=== PATIENT | female | born 1995 | race Caucasian/White ===

== ENCOUNTER 2019-09-05 16:45 | Outpatient (REF) | payer SELFPAY | END 2019-09-05 17:05 | LOC: NCHCO 16:45 | PROVIDERS: PCP Pediatrics; Visit Provider Registered Nurse | DX: R82.90 Unspecified abnormal findings in urine (principal) | CPT/HCPCS: 87086 ==

== ENCOUNTER 2023-07-28 14:38 | Outpatient (REF) | payer SELFPAY ==
--- NOTE | 2023-07-28 13:45 | PAPFT_PTH ---
PATIENT: Alma Quesada LOC: [facility] U#:[id number] AGE/SX: 28/F ROOM: RE07/28/[address]: Misty Rojas CNM : 1995 BED: DIS: 07/28/2023 SPEC #: [id number] RECD: 07/28/23 18:31 STATUS: COLLEEN REQ #: [id number] JOSE: 07/28/23 13:[address]: Misty Rojas DEPT: [facility] Cytology RECD BY: Lola Alejandro ENTERED: 07/28/23 18:31 SP TYPE: PAPFT OTHR DR: Alison Local Tissues: 1 - CX/ENDOCX FOR PAP SMEARS Procedures: PAP THIN PREP/UVM Screening Comments: [id number] (CHLAMYDIA/GC)
[2023-07-28 18:28] LABS: *AMPHETAMINES SCREEN URINE Negative (Negative); *BARBITURATES SCREEN URINE Negative (Negative); *BENZODIAZEPINES SCREEN URINE Negative (Negative); Cannabinoids THC Negative (Negative); Cocaine Screen,Urine Negative (Negative); METHADONE URINE SCREEN Negative (Negative); OPIATES URINE SCREEN Negative (Negative)
[2023-07-28 18:30] LABS: Tricyclic Antidepressants Negative (Negative)
[2023-07-29 12:57] LABS: Chlamydia Result Negative (Negative); GC Result Negative (Negative)
[2023-08-05 11:03] LABS: Buprenorphine Negative ng/mL (Cutoff: 5.0); Norbuprenorphine Negative ng/mL (Cutoff: 2.5)
== END 2023-07-28 14:39 | disposition home or self-care (01) ==
LOC: LBN 14:38
PROVIDERS: Visit Provider Advanced Practice Midwife
DX: Z34.91 Encounter for supervision of normal pregnancy, unspecified, first trimester (principal); Z3A.15 15 weeks gestation of pregnancy; Z11.3 Encounter for screening for infections with a predominantly sexual mode of transmission; Z12.4 Encounter for screening for malignant neoplasm of cervix
CPT/HCPCS: 80307; 80348; 87491; 87591; 88142; 87086

== ENCOUNTER → 2023-09-02 02:35 | Outpatient (CLI) | payer MEDICAID, SELFPAY ==
--- NOTE | 2023-09-02 06:30 | DI.US_ITS ---
Exam(s) US OB 2-3 TRIMESTER EXAM: US OB 2-3 TRIMESTER CLINICAL HISTORY: anatomy,z34.91. TECHNIQUE: Transabdominal obstetrical ultrasound performed. COMPARISON: US POCUS EXAM from 07/22/2023 FINDINGS: Number of fetuses: One. position: Vertex. Placental grade: 1 Placental location: Anterior no evidence of previa. BIOMETRIC DATA: BPD: 46mm = 20+ 0 weeks HC: 178mm = 20+ 2 weeks AC: 162mm = 21+2 weeks FL: 33mm = 20+ 3 weeks Cisterna Magna: 6 mm Cerebellum: 1.9 cm EFW: 375 grms 72% Composite Age: 20+ 4 weeks EDC by US: 16 January 2024 Heart Rate: 141BPM Amniotic fluid : Amount of fluid is within normal limits. MALIKA 10.3 ANATOMICAL SURVEY: Four-chambered heart: Unremarkable. LVOT: Unremarkable. RVOT: Unremarkable. Left-sided stomach: Unremarkable. urinary bladder: Unremarkable. Bilateral kidneys: Unremarkable. Three-vessel cord: Unremarkable. Cord insertion: Unremarkable. Posterior fossa:Unremarkable. ventricles: Unremarkable. nose: Unremarkable. lips: Unremarkable. palate: Unremarkable. spine: Unremarkable. Two arms and two legs: Unremarkable. IMPRESSION: 1. Single live intrauterine gestation with composite age of 20 weeks 4 days.. 2. Normal anatomic survey. DATA REPOSITORY:
== END ==
PROVIDERS: Visit Provider Advanced Practice Midwife
DX: Z34.91 Encounter for supervision of normal pregnancy, unspecified, first trimester (principal)
CPT/HCPCS: 76805

== ENCOUNTER 2023-10-28 10:07 | Outpatient (CLI) | payer MEDICAID, SELFPAY ==
[2023-10-28 10:28] LABS: HCT 32.3 % (36.0-46.0); HGB 11.1 g/dL (11.2-15.7); MCH 32.1 pg (27.0-33.0); MCHC 34.4 % (32.0-36.0); MCV 93 fL (80-95); MPV 9.5 fL (8.0-11.0); Platelet Count 228 10^3/uL (130-400); RBC 3.46 10^6/uL (3.93-5.22); RDW 12.1 % (11.7-14.6); RDW-SD 41.2 fL; WBC 8.41 10^3/uL (4.4-10.8)
[2023-10-28 10:41] LABS: Glucose,1 Hr (Glucola) 88 mg/dL (80-140)
[2023-10-29 09:42] LABS: Hepatitis B Surface Ag Negative (Negative)
[2023-10-29 09:52] LABS: Hepatitis C Ab w Rflx HCV PCR Negative (Negative)
[2023-10-29 10:13] LABS: Varicella IgG Antibody Positive (See Note)
[2023-10-29 10:22] LABS: HIV-1/2 Ag & Ab Screen Negative (Negative)
[2023-10-29 10:25] LABS: Rubella IgG Ab (UVM) Positive (See Note)
[2023-10-30 21:28] LABS: Syphilis IgG w/Reflex Nonreactive (Nonreactive)
== END 2023-10-28 10:08 | disposition home or self-care (01) ==
LOC: LBO 10:09
PROVIDERS: Visit Provider Advanced Practice Midwife
DX: Z34.92 Encounter for supervision of normal pregnancy, unspecified, second trimester (principal)
CPT/HCPCS: 36415; 82950; 85027; 86787; 86803; 86850; 86900; 86901; 87340; 87389; 86762; 86780

== ENCOUNTER 2023-12-21 14:41 | Outpatient (REF) | payer MEDICAID, SELFPAY ==
[2023-12-21 20:39] LABS: *AMPHETAMINES SCREEN URINE Negative (Negative); *BARBITURATES SCREEN URINE Negative (Negative); *BENZODIAZEPINES SCREEN URINE Negative (Negative); Cannabinoids THC Negative (Negative); Cocaine Screen,Urine Negative (Negative); METHADONE URINE SCREEN Negative (Negative); OPIATES URINE SCREEN Negative (Negative)
[2023-12-21 20:41] LABS: Tricyclic Antidepressants Negative (Negative)
[2023-12-29 09:42] LABS: Buprenorphine Negative ng/mL (Cutoff: 5.0)
== END 2023-12-21 14:42 | disposition home or self-care (01) ==
LOC: LBN 14:41
PROVIDERS: PCP Advanced Practice Midwife; Visit Provider Advanced Practice Midwife
DX: Z34.93 Encounter for supervision of normal pregnancy, unspecified, third trimester (principal)
CPT/HCPCS: 80307; 80348; 87081

== ENCOUNTER 2023-12-21 14:52 | Outpatient (CLI) | payer MEDICAID, SELFPAY ==
[2023-12-21 14:55] VITALS: BP 115/68; PULSE 88; RESP 16; TEMP 36.6; O2SAT 98
[2023-12-21 15:07] VITALS: BP 115/68
--- NOTE | 2024-01-14 15:31 | W.OBNST ---
Date of service: 01/14/24 Time of Service: 15:31 NST Evaluation Reason for NST Reasons for Nonstress Test: OTHER, SEE COMMENT Reason for NST Other: low heart rate Gestational Age Gestational Age in Weeks and Days: 36 Weeks and 0Days Test and Monitor Explained Test/Monitor Explained: Test Explained, Monitor Explained and Patient Verbalized Understanding Vital Signs Blood Pressure: 115/68 NST Information Date on Monitor: 12/21/23 Time on Monitor: 15:06 Date off Monitor: 12/21/23 Time off Monitor: 16:09 Total Time on Monitor: 63 NST Interventions: PO Hydration NST Evaluation Patient States Movement: Present FHR Baseline: 125 Variability: Moderate 6-25 bpm Accelerations: 10x10 Decelerations: None NST Results: Questionable Note Ultrasound Done: MALIKA (evaluated well being.) Indication: Other (baseline FHR seemed low in office. BC evaluation of MALIKA requested by CNM. ) Largest Vertical Pocket: 6.8 Total MALIKA: 11.6 Other Pertinent Findings: Heart Rate Coding for MALIKA w/NST: Completed Exam. NST Note Note: BPP 10/10. Findings conveyed to pt and CNM. NST Reviewed and Verified by: Preeti Jerome
[2024-01-14 15:33] VITALS: BP 115/68
== END 2023-12-21 16:30 ==
LOC: BCD 14:53 → OBS 15:05
PROVIDERS: PCP Advanced Practice Midwife; Visit Provider Advanced Practice Midwife
DX: O36.8391 Maternal care for abnormalities of the fetal heart rate or rhythm, unspecified trimester, fetus 1 (principal); Z3A.36 36 weeks gestation of pregnancy
CPT/HCPCS: 59025

== ENCOUNTER 2023-12-28 04:01 | Outpatient (CLI) | payer MEDICAID, SELFPAY ==
[2023-12-28 14:09] LABS: HCT 31.7 % (36.0-46.0); HGB 10.8 g/dL (11.2-15.7); MCH 30.9 pg (27.0-33.0); MCHC 34.1 % (32.0-36.0); MCV 91 fL (80-95); MPV 10.1 fL (8.0-11.0); Platelet Count 177 10^3/uL (130-400); RBC 3.49 10^6/uL (3.93-5.22); RDW 13.8 % (11.7-14.6); RDW-SD 45.3 fL; WBC 8.15 10^3/uL (4.4-10.8)
== END 2023-12-28 04:02 | disposition home or self-care (01) ==
LOC: LBO 04:02
PROVIDERS: PCP Advanced Practice Midwife; Visit Provider Advanced Practice Midwife
DX: Z34.93 Encounter for supervision of normal pregnancy, unspecified, third trimester (principal); Z3A.37 37 weeks gestation of pregnancy
CPT/HCPCS: 36415; 85027

== ENCOUNTER 2024-01-19 11:33 | Outpatient (CLI) | payer MEDICAID, SELFPAY ==
--- NOTE | 2024-01-19 12:34 | W.OBNST ---
Date of service: 01/19/24 Time of Service: 12:34 NST Evaluation Reason for NST Reasons for Nonstress Test: OTHER, SEE COMMENT Reason for NST Other: arrythmia Gestational Age Gestational Age in Weeks and Days: 40 Weeks and 1Days Test and Monitor Explained Test/Monitor Explained: Test Explained, Monitor Explained and Patient Verbalized Understanding NST Information Date on Monitor: 01/19/24 Time on Monitor: 11:35 Date off Monitor: 01/19/24 Time off Monitor: 12:25 Total Time on Monitor: 50 NST Interventions: PO Hydration NST Evaluation Patient States Movement: Present FHR Baseline: 120 Variability: Moderate 6-25 bpm Accelerations: 15x15 Decelerations: None NST Results: Reactive Note Ultrasound Done: N/A. NST Note Note: NST is reactive and reassuring. Will return on Thursday01/25/24 for NST and MALIKA or as needed. NST Reviewed and Verified by: Misty Rojas
--- NOTE | 2024-01-19 16:56 | W.OBNST ---
Date of service: 01/19/24 Time of Service: 12:30 NST Evaluation Reason for NST Reasons for Nonstress Test: OTHER, SEE COMMENT Reason for NST Other: arrythmia Gestational Age Gestational Age in Weeks and Days: 40 Weeks and 1Days Test and Monitor Explained Test/Monitor Explained: Test Explained, Monitor Explained and Patient Verbalized Understanding Vital Signs Blood Pressure: 110/76 NST Information Date on Monitor: 01/19/24 Time on Monitor: 11:35 Date off Monitor: 01/19/24 Time off Monitor: 12:25 Total Time on Monitor: 50 NST Interventions: PO Hydration NST Evaluation Patient States Movement: Present FHR Baseline: 120 Variability: Moderate 6-25 bpm Accelerations: 15x15 Decelerations: None NST Results: Reactive Note Ultrasound Done: N/A. NST Note Note: NST is reactive and reassuring. No audible FHR arrythmia noted but was noted in office. I reviewed with patient that an irregular HR for fetus usually resolves after delivery. She will return in 1 week for NST and MALIKA and to consider induction of labor or prn. MYRON NST Reviewed and Verified by: Misty Rojas
[2024-01-19 16:59] VITALS: BP 110/76
== END 2024-01-19 12:30 | disposition home or self-care (01) ==
LOC: BCD 11:35 → OBS 11:42
PROVIDERS: PCP Advanced Practice Midwife; Visit Provider Advanced Practice Midwife
DX: O36.8331 Maternal care for abnormalities of the fetal heart rate or rhythm, third trimester, fetus 1 (principal); Z3A.40 40 weeks gestation of pregnancy
CPT/HCPCS: 59025

== ENCOUNTER 2024-01-25 00:35 | Inpatient (IN) | payer MEDICAID, SELFPAY ==
[2024-01-25] VITALS (25 sets, daily range): BP systolic 103–134; BP diastolic 61–79; PULSE 51–97; RESP 16–18; TEMP 36.4–36.6; O2SAT 97
--- NOTE | 2024-01-25 01:45 | W.PM.OBHPL1 ---
Date of service: 01/25/24 Time of Service: 01:45 Assessment and Plan Assessment and plan (1) Spontaneous onset of labor: Status: Acute Assessment and plan: Admit to the center. BP 125-134/78-79. Admission labs wth CMP and uric acid. Comfort measures. Tylenol PO for headache. Anticipate . OB-HPI Labor/Delivery History of Present Illness Reason for Visit: Labour Chief Complaint: Uterine Contractions. RAMONA Calculator Estimated Delivery Date Method Current WG Current Estimate 01/18/24 Ultrasound #1 41w 0d Other Estimates 02/03/24 LMP (Uncertain) 38w 5d Comments: Alma presents with her partner and mother in active labor. She has had a headache for 3 days and has not taken any medications for this today. She normaly takes tylenol PO. History of Present Expected Delivery Route/Plan - CNM FOB - Jaiden Hernandez (first child) BB yes to circ support team will be both grandmom's and FOB Plans unmedicated GBS negative Specific Issues/Plan 1. Previous CF neg, declines SMA & cfDNA, accepts Quad screen but did not do labs in time 2. All labs at 28 weeks 3. Heartburn - omeprazole BID 4. Anemia - Taking iron daily. POC hgb 12/21 - 10.5 4a. At 37 wks hgb/hct = 10.8/31.7 PFSH All Active Problems (Updated 01/25/24 @ 01:49 by Misty Maciel CNM) Spontaneous onset of labor (Acute) (Acute) Delivery normal (Acute) Medical History (Updated 01/25/24 @ 01:49 by Misty Maciel CNM) Urinary tract infection (09/29/13) Family history of congenital anomaly (09/29/13) Postcoital and contact bleeding (04/19/18) Nexplanon insertion (04/09/16) LOT #[id number] Family history of cervical cancer (04/19/18) Personal history of urinary tract infection Posttraumatic stress disorder Surgical History History of mandibular surgery H/O right knee surgery Family History Mother Carcinoma in situ of uterine cervix Brother Family history of congenital anomaly Cerebellum Hypoplasia Other Cardiovascular disease Chronic hypotension Diabetes Social History Smoking/Tobacco Use Status: Never Smoking risk assessment performed?: Yes Alcohol Intake: former Drug use: Never Household members: significant other and children Housing: house Number of Children: 2 Communication Needs: None Pets and animals: Yes Pets and animals: cat(s) and dog(s) Sexually active: Yes What is your relationship status?: living with partner How often do you talk on the phone with friends or family?: once per week How often do you get together with friends or relatives?: once per week Panel score (0-1 are the most socially isolated patients): 1 What type of physical activity do you participate in: additional Details: horse back riding Karina/Yarsanism: Zoroastrianism Seatbelt use: always Helmet use: No Drive intox or ride w/intox driver education road instructor: No History History 4 Para 2 Hx # Term Pregnancies 2 Multiple births 0 Hx # Pregnancies 0 Ectopic pregnancies 0 AB induced 0 Hx Number of Living Children 2 AB spontaneous 1 Past Pregnancies Del. Date GA/Weeks # Preg Succ Route Wgt Sex Labor Lgth Anesthesia Location Prov Complic 06/30/09 6 No No 05/22/14 42 No Yes vaginal 9 lb 5.6 oz Male 24 Anea 02/24/16 41 No Yes vaginal 8 lb 10 oz Male 6 Anea Delivery Date: 06/30/09 Last Updated by: Misty Rojas CNM SAB no complications, reports as consensual Delivery Date: 05/22/14 Last Updated by: Misty Rojas CNM [facility] Anea delivered, Max Delivery Date: 02/24/16 Last Updated by: Misty Rojas CNM Anea for delivery, [facility] Allergies and Home Medications Allergies Allergy/AdvReac Type Severity Reaction Status Date / Time No Known Allergies Allergy Unverified 01/19/24 10:59 Home Medications Medication Instructions Recorded Confirmed Type vitamin#30 30 mg iron-10 cap PO 07/22/23 01/19/24 History mg iron-folic acid 1 mg-omg3 capsule ferrous sulfate 325 mg (65 mg 325 mg PO DAILY #30 tabs 10/28/23 01/19/24 Rx iron) tablet (Feosol) omeprazole magnesium 20 mg 40 mg (2 x 20 mg) PO BID #120 tabs 12/07/23 01/19/24 Rx tablet,delayed release hydrocortisone acetate 10 % (80 1 appful [place] BID #15 grams 12/29/23 01/19/24 Rx mg) rectal foam (Cortifoam) Exam Physical Exam Vital signs: Temp Pulse Resp BP 97.7 F 80 18 125/79 01/25/24 01:11 01/25/24 01:27 01/25/24 01:11 01/25/24 01:27 Constitutional Constitutional: no acute distress Detailed Labor and Delivery Exam Dilation: 4 Effacement (%): 80 station: -1 Cervix position: posterior Consistency: medium Bruno Score: Cervical Points Exam 0 1 2 3 Dilation Closed 1-2cm 3-4 cm 5-6cm Effacement 0-30% 40-50% 60-70% 80% Consistency Firm Medium Soft Station -3 -2 -1,0 +1,+2 Position Posterior Mid Anterior Amniotic Membrane Status: Intact Monitor Mode: External Contraction Frequency(min): every 2-3 Contraction Duration(sec): 50-60 Contraction Intensity: Moderate Fetus A Heart Rate Baseline: 135 Monitor Accelerations: 15 X 15 Monitor Decelerations: None Variability: Moderate (6-25 BPM) Presentation: Cephalic Categories: Category I Respiratory Exam Respiratory Exam: Normal Cardiovascular Exam Cardiovascular Exam: Normal Abdominal Exam Abdominal Exam: Normal Exam Exam: Normal Extremities Exam Extremities Exam: Normal Skin Exam Skin Exam: Normal Psychiatric Exam Psychiatric Exam: Normal Risk Assessment Risk for Shoulder Dystocia Historical/Initial OB: NEGATIVE FOR: Pelvic Abnormality, Pre- BMI>30, Previous Shoulder Dystocia or Previous Macrosomia 36 Weeks: NEGATIVE FOR: Current Gestational DM, EFW>4500gms or Maternal Weight Gain>40lbs 40 Weeks: POSTIVE FOR: Post Dates; NEGATIVE FOR: EFW> 4500 gms or Maternal Weight Gain >40lb Risk for Pre-Eclampsia Daily Dose ASA Indicated: No Yes, if one or more: NEGATIVE FOR: Hx Pre-E/Gest HTN, Chronic HTN, Multiple Gestation, Pre-gestational DM, Renal Disease, Systemic Lupus or APA Syndrome Yes, if 2 or more: NEGATIVE FOR: Nulliparity, Age>= 35 yrs, >10yr btwn pregnancies, BMI>30, ethinicty, Mother/Sister w/ Pre-E or Previous IUGR Risk for Post- Hemorrhage Initial: NEGATIVE FOR: Multiple Gestation, Previous PPH, Known Clotting Deficiency, Grand Multiparity or Anticoagulation 36 Weeks: NEGATIVE FOR: Anemia, hgb<10, Low platelets(thrombocytopenia), Gestational HTN or Pre-E, Polyhydraminios or EFW>4500gms 40 Weeks: NEGATIVE FOR: Anemia, hgb<10, Low platelets (thrombocytopenia), Gestation HTN or Pre-E, Polyhydraminios or EFW>4500gms At Risk?: No Risks Reviewed Risks Reviewed Upon Admission: Yes
[2024-01-25] MEDS: Acetaminophen 500 MG TAB 1000 MG PO (01:59)
[2024-01-25 02:02] LABS: HCT 32.1 % (36.0-46.0); HGB 11.1 g/dL (11.2-15.7); MCH 30.4 pg (27.0-33.0); MCHC 34.6 % (32.0-36.0); MCV 88 fL (80-95); Platelet Count 169 10^3/uL (130-400); RBC 3.65 10^6/uL (3.93-5.22); RDW-SD 41.9 fL; WBC 11.06 10^3/uL (4.4-10.8)
[2024-01-25 02:17] LABS: Uric Acid 7.2 mg/dL (2.6-6.0)
[2024-01-25 02:20] LABS: ALT 19 U/L (14-59); AST 21 U/L (15-37); Albumin 2.5 g/dL (3.4-5.0); Alkaline Phosphatase 210 U/L (46-116); Anion Gap 11.9 mmol/L (3-11); BUN 10 mg/dL (7-18); Bilirubin, Total 0.4 mg/dL (0.2-1.0); CO2 21.1 mmol/L (21.0-32.0); CREATININE 0.9 mg/dL (0.55-1.02); Calcium 8.6 mg/dL (8.5-10.1); Chloride 106 mmol/L (98-107); Estimated GFR 88.75 (mL/min/1.73m2); Glucose 92 mg/dL (74-106); Potassium 3.7 mmol/L (3.5-5.1); Sodium 139 mmol/L (136-145); Total Protein 6.7 g/dL (6.4-8.2)
[2024-01-25] MEDS: Oxytocin 10 UNITS/ML VIAL IM (06:02)
--- NOTE | 2024-01-25 06:42 | W.OBNST ---
Date of service: 01/25/24 Time of Service: 06:44 NST Evaluation Reason for NST Reasons for Nonstress Test: POSTDATES Gestational Age Gestational Age in Weeks and Days: 41 Weeks and 0Days Test and Monitor Explained Test/Monitor Explained: Test Explained and Patient Verbalized Understanding Vital Signs Blood Pressure: 134/78 Pulse: 68 Temperature: 207.9 F Urine Results Urine Protein: Negative Urine Ketones: Negative Urine Glucose: Negative Urine Blood: Negative NST Information Date on Monitor: 01/25/24 Time on Monitor: 00:48 Date off Monitor: 01/25/24 NST Interventions: PO Hydration NST Evaluation Patient States Movement: Present FHR Baseline: 130 Variability: Moderate 6-25 bpm Accelerations: 15x15 Decelerations: None NST Results: Reactive Note Ultrasound Done: N/A. NST Note Note: Alma is here for rule out labor. Strong regular contractions. 4 cms/80%/-1. Admitted in active labor NST Reviewed and Verified by: Misty Maciel
--- NOTE | 2024-01-25 06:58 | OBVDS_ITS ---
Date of service: 01/25/24 Time of Service: 06:58 OB Labor/ Delivery Information Baby A Delivery Delivery Method: Spontaneaous Presentation: Cephalic Vertex Position: Left Occipital Anterior Cord Description-Baby A: 3 Vessels Amniotic Fluid: Clear Estimated Blood Loss: 250 Delivery Outcome: Liveborn Transferred: Remains with Mother Note: FHTs 130s during first stage of labor. Alma used the tub and nitrous oxide for pain relief with excellent effect. She reported back pain and requested an epidural. She was examined and was found to be 9 cms. AROM performed for clear fluid and she began experiencing an urge to push. FHTs 130s in second stage. Second stage huddle was done. Spontaneous delivery of male infant delivered in CELINA position. Baby was placed on mother's abdomen and dried and stimulated. Spontaneous cry. Cord was clamped and cut by the baby's father. The placenta delivered spontaneously and appears to by intact with a three vessel cord. Pitocin 10 units IM was administered after delivery of the placenta. The perineum was inspected and was intact. Alma plans to pump and bottlefeed. After delivery, Mother and baby and father of the baby were stable and bonding well in the delivery room and there were no complications. An arrhythmia was heard of the baby's heart and O2 sats were checked. Dr vazquez, the painter shipyard wheelchair van operator first responder was notified of the arrhythmia. Providers Nurse Export Sales Manager: Misty Maciel Dictating Machine Mechanic: Verena Vazquez Nurse: Bernarda Umanzor Nurse: Doretha English Labor/Delivery Information Number of Babies in Womb: 1 Steroids Given: None Reason Steroids Not Administered: N/A Group Beta Strep: N/A Antibiotics Administered: No Rubella Status: Immune Blood Type: B+ Varicella Immunity: Immune Medication in Delivery: nitrous and im pit Born En Route: No Maternal Complications: None Shoulder Dystocia: No Stages of Labor Onset of Labor Date: 01/24/24 Onset of Labor Time: 18:30 Complete Dilatation Date: 01/25/24 Complete Dilatation Time: 06:00 Labor - Stage 1 Duration: 11 hours and 30 minutes ROM Baby A: 01/25/24 ROM Baby A: 05:50 Delivery Date-Baby A: 01/25/24 Delivery Time-Baby A: 06:02 Labor Stage 2 Duration: 2 minutes Placenta Delivery Date-Baby A: 02/26/24 Placenta Delivery Time-Baby A: 06:10 Labor-Stage 3 Duration: 8 minutes Total Length of Labor-Baby A: 11 hours and 32 minutes Placenta Cultured: No Placenta Status: Delivered Baby A Gender: Male Gestational Age in Weeks/Days: 41 Weeks and 0 Days Score-1 Minute Interval(Baby A) Heart Rate-1 minute: 100 BPM or Greater Respiratory Effort- 1 minute: Spontaneous/Strong Cry Muscle Tone-1 minute: Active Movement Reflex Response-1 minute: Minimal Response Color-1 minute: Pallor or Cyanosis Total Score-1 minute: 7 Score-5 Minute Interval(Baby A) Heart Rate- 5 minute: 100 BPM or Greater Respiratory Effort-5 minute: Spontaneous/Strong Cry Muscle Tone-5 minute: Active Movement Reflex Response-5 minute: Prompt Response Color-5 minute: Bluish Hands or Feet Total Score- 5 minute: 9
[2024-01-25] MEDS: Acetaminophen 325 MG TAB 650 MG PO ×2 (09:40→18:00)
[2024-01-25] MEDS: Ibuprofen 600 MG TAB PO (18:00)
[2024-01-26] MEDS: Ibuprofen 600 MG TAB PO ×2 (05:00→11:00)
[2024-01-26] MEDS: Acetaminophen 325 MG TAB 650 MG PO ×2 (05:00→11:00)
[2024-01-26] MEDS: Docusate Sodium 100 MG CAP PO (08:58)
[2024-01-26 09:00] VITALS: BP 117/73; PULSE 83; RESP 18; TEMP 36.6; O2SAT 98
[2024-01-26] MEDS: Fluconazole 150 MG TAB PO (11:31)
--- NOTE | 2024-01-26 11:42 | DSE_ITS ---
Date of service: 01/26/24 Time of Service: 11:46 DS: Diagnosis Discharge Diagnosis (1) Term of male : Status: Acute Asessment and Plan: Caring for baby independently. Pain is managed well with oral analgesics. Voiding without difficulty. well. A - stable mother and baby , Post day 1 P - Discharge to home today after circumcision. Routine post instructions. [facility] Discharge Plan Disposition Patient Disposition: Home Condition: Good Discharge Details Reason For Visit: Labor Admit Date/Time: 01/25/24 01:44 Admit Provider: Misty Maciel Attending Provider: Misty Maciel Primary Care Provider: Misty Maciel Home Meds and New Rx's Prescriptions: No Action PNV #[id number] acid-omega3 30 mg iron-10 mg iron-1 mg capsule PO ferrous sulfate [Feosol] 325 mg (65 mg iron) tablet 325 mg PO DAILY Qty: 30 7RF omeprazole magnesium 20 mg tablet,delayed release (DR/EC) 40 mg PO BID Qty: 120 3RF Cortifoam 10 % (80 mg) foam 1 appful [place] BID Qty: 15 5RF Discharge Instructions Stand Alone Forms: BC Instructions, BC Post Vaginal Deliver Activity:: Activity as Tolerated Equipment/Supplies:: No Equipment Needed Diet:: As Tolerated Discharge Orders Discharge Orders: Discharge Order (Routine); Ordered 01/26/24 Ordered By: Misty Maciel OB:DS Summary Summary Vaginal Delivery Method: Spontaneaous Episiotomy Description: None Contraception Discussed Contraception Discussed: Yes Contraceptive Plan: Undecided, Infant Gender-Baby A: Male weight: 9 lb 4.856 oz Status at Discharge Functional status at discharge: independent ambulation Overall status at discharge: patient is back to baseline Mental Status: mental status grossly normal Speech and Movement: speech and movement normal Mood: congruent mood Affect: normal affect Quality:SDOH Health Related Social Needs: No Data to Display Exam Physical Exam Vital signs: Temp Pulse Resp BP Pulse Ox 97.9 F 83 18 117/73 98 01/26/24 09:00 01/26/24 09:00 01/26/24 09:00 01/26/24 09:00 01/26/24 09:00 Vital Signs Reviewed: Yes Constitutional Constitutional: no acute distress HEENT Exam HEENT Exam: Normal Respiratory Exam Respiratory Exam: Normal Cardiovascular Exam Cardiovascular Exam: Normal Fundal Exam Fundus: Below Umbilicus and Firm Exam Perineum: Intact External: Absent swelling Extremities Exam Extremity Exam: Normal Skin Exam Skin Exam: Normal Psychiatric Exam Psychiatric Exam: Normal PFSH All Active Problems (Updated 01/26/24 @ 11:43 by Misty Maciel CNM) Term of male (Acute) Medical History (Updated 01/26/24 @ 11:43 by Misty Maciel CNM) Urinary tract infection (09/29/13) Family history of congenital anomaly (09/29/13) Postcoital and contact bleeding (04/19/18) Family history of cervical cancer (04/19/18) Personal history of urinary tract infection Posttraumatic stress disorder Surgical History History of mandibular surgery H/O right knee surgery Family History Mother Carcinoma in situ of uterine cervix Brother Family history of congenital anomaly Cerebellum Hypoplasia Other Cardiovascular disease Chronic hypotension Diabetes Social History Smoking/Tobacco Use Status: Never Smoking risk assessment performed?: Yes Alcohol Intake: former Drug use: Never Substance use type: does not use Household members: significant other and children Housing: house Number of Children: 2 Communication Needs: None Pets and animals: Yes Pets and animals: cat(s) and dog(s) Sexually active: Yes What is your relationship status?: living with partner How often do you talk on the phone with friends or family?: once per week How often do you get together with friends or relatives?: once per week Panel score (0-1 are the most socially isolated patients): 1 What type of physical activity do you participate in: additional Details: horse back riding Karina/Pentecostalism: Zoroastrianism Seatbelt use: always Helmet use: No Drive intox or ride w/intox motorcycle delivery driver: No Do you feel safe at home: Yes Do you feel safe in your relationship?: Yes History History 4 Para 2 Hx # Term Pregnancies 2 Multiple births 0 Hx # Pregnancies 0 Ectopic pregnancies 0 AB induced 0 Hx Number of Living Children 2 AB spontaneous 1 Past Pregnancies Del. Date GA/Weeks # Preg Succ Route Wgt Sex Labor Lgth Anesth esia Location Prov Complic 06/30/09 6 No No 05/22/14 42 No Yes vaginal 9 lb 5.6 oz Male 24 Ane a 02/24/16 41 No Yes vaginal 8 lb 10 oz Male 6 Anea Delivery Date: 06/30/09 Last Updated by: Misty Rojas CNM SAB no complications, reports as consensual Delivery Date: 05/22/14 Last Updated by: Misty Rojas CNM [facility] Anea delivered, Max Delivery Date: 02/24/16 Last Updated by: Misty Rojas CNM Anealex for delivery, Matt DS: Data Vitals/I&O Vitals and I&O: Vital Signs Temperature 97.9 F 01/26/24 09:00 Temperature 207.9 F 01/25/24 06:43 Temperature Source Oral 01/26/24 09:00 Pulse 83 01/26/24 09:00 Pulse 68 01/25/24 06:43 Pulse Rhythm Regular 01/26/24 08:59 Respiratory Rate 18 01/26/24 09:00 Blood Pressure 117/73 01/26/24 09:00 Blood Pressure 134/78 01/25/24 06:43 Blood Pressure Mean 87 01/26/24 09:00 Pulse Oximetry 98 01/26/24 09:00 Oxygen Delivery Method Room Air 01/25/24 02:06 Oxygen Flow Rate 0 01/25/24 02:06 Pain Level 3 01/26/24 09:00 Intake & Output 01/25/24 01/25/24 01/26/24 11:59 23:59 11:59 Output Total 600 / 1400 800 / 1400 Balance -600 / -1400 -800 / -1400 Weight 205 lb 15.999 oz Output: Urine 600 / 1400 800 / 1400 Other: Urine Color Pale Pale
== END 2024-01-26 17:08 | disposition home or self-care (01) | DRG 807 ==
PROVIDERS: Admitting Provider Advanced Practice Midwife; PCP Advanced Practice Midwife; Visit Provider Advanced Practice Midwife
DX: O48.0 Post-term pregnancy (principal); Z37.0 Single live birth; Z3A.41 41 weeks gestation of pregnancy; O99.02 Anemia complicating childbirth; D64.9 Anemia, unspecified; R12 Heartburn; F43.10 Post-traumatic stress disorder, unspecified; O99.344 Other mental disorders complicating childbirth; O76 Abnormality in fetal heart rate and rhythm complicating labor and delivery; O99.62 Diseases of the digestive system complicating childbirth
CPT/HCPCS: 36415; 80053; 85027; 86850; 86900; 86901; 84550; J2590

== ENCOUNTER 2024-07-29 22:19 | Emergency (ER) | payer MEDICAID, SELFPAY ==
[2024-07-29 23:00] VITALS: BP 124/77; PULSE 81; RESP 18; TEMP 36.7; O2SAT 95
[2024-07-29 23:00] LABS: Clarity Sl Cloudy (Clear)
[2024-07-29 23:11] LABS: Bacteria Few HPF (Negative); C & S Indicated? No/Sq. Contamination; Crystals Negative HPF (Negative); Epithelial Cells Many HPF (Negative); Mucus Negative (Negative); Other Cells Rare Transitional (Negative); RBC 20-50 HPF (0-2); WBC 20-50 HPF (0-5)
--- NOTE | 2024-07-29 23:12 | ED.GENADUL_ITS ---
Discharge Plan Disposition Patient Disposition: Home Condition: Stable Discharge Details Clinical Impression: UTI (urinary tract infection) Primary Care Provider: Misty Maciel ED Provider: Joselin Santacruz Home Meds and New Rx's Prescriptions: New cephalexin 500 mg capsule 500 mg PO BID 7 Days Qty: 14 0RF Rx Instructions: Take 1 capsule by mouth twice daily for the next 7 days Discharge Instructions Instructions: Urinary Tract Infection, Adult ED Additional Instructions: Please take the antibiotic twice daily with yogurt or probiotic as directed for the next 7 days. Follow up with primary care provider in 3-5 days. Return to ED sooner if any worsening or concerns. Referrals: Misty Maciel CNM [Primary Care Provider] - 3 days HPI General Mode of arrival: ambulatory . Date/Time Provider Initiated Documentation: 07/29/24 22:23 . Limitations to Documentation: no limitations . Information obtained by: patient, RN notes reviewed and old records reviewed . HPI Narrative: 29-year-old female presents to the ER with a chief complaint of 3 days of dysuria. She has been taking Pyridium at home with some relief. She is 6 months and is breast-feeding. Denies any nausea vomiting fever chills or back pain. Her urinalysis is slightly skewed by the Pyridium however does show 20-50 WBCs and 20-50 RBCs. It is squamous contaminated. However due to her symptoms we will go ahead and treat her. Related Data Home Medications ?Medication ?Instructions ?Recorded ?Confirmed cephalexin 500 mg capsule 500 mg PO BID UTI 7 days #14 caps 07/29/24 Previous Rx's ?Medication ?Instructions ?Recorded cephalexin 500 mg capsule 500 mg PO BID UTI 7 days #14 caps 07/29/24 Allergies Allergy/AdvReac Type Severity Reaction Status Date / Time No Known Allergies Allergy Unverified 07/29/24 23:29 General Stated Complaint: Urinary YUE: 4 Review of Systems Genitourinary Genitourinary: Reports as per HPI and Reports dysuria Exam Narrative Exam Narrative: Constitutional: Alert and oriented x3. Appears stated age. Normal body habitus. Head: Normocephalic, no trauma. Eyes: Pupils PERRL, Red reflex noted, EOM's intact. Eyelids symmetrical without lesions, discharge, or swelling. ENT: Bilateral TM's WNL, External ear normal to inspection, no mastoid TTP, swelling, or erythema, Nasal turbinates WNL, no nasal discharge. Normal dentition, Posterior pharynx WNL, no exudate. Chest: RRR, Normal S1, S2, distal pulses intact. Resp: Lungs clear to auscultation bilaterally, no wheezes, rales, or rhonchi. Abdomen: Soft, non-distended, Normoactive bowel sounds all 4 quads. Musculoskeletal: Normal gait, Moves all 4 extremities without difficulty. Skin: No suspicious rashes or lesions. Capillary refill less than 2 sec. Neurologic: Cranial nerves II-XII intact. Alert and oriented x 3. Motor: No deficits noted. Sensory: Intact bilaterally all 4 extremities. Hematologic/Lymphatic: No ecchymosis, no lymphadenopathy. Course Vital Signs Vital signs: Vital Signs Temperature 36.7 C 07/29/24 23:00 Pulse 81 07/29/24 23:00 Respiratory Rate 18 07/29/24 23:00 Blood Pressure 124/77 07/29/24 23:00 Pulse Oximetry 95 07/29/24 23:00 Temperature 36.7 C 07/29/24 23:00 Temperature Source Temporal Artery Scan 07/29/24 23:00 Pulse 81 07/29/24 23:00 Respiratory Rate 18 07/29/24 23:00 Respiratory Effort Normal, Non-Labored 07/29/24 23:06 Blood Pressure 124/77 07/29/24 23:00 Blood Pressure Position Sitting 07/29/24 23:00 Pulse Oximetry 95 07/29/24 23:00 Oxygen Delivery Method Room Air 07/29/24 23:00 Oxygen Flow Rate 0 07/29/24 23:00 Pain Level 3 07/29/24 23:00 Lab/Test Results Lab/Test Results: Laboratory Tests Range/Units 07/29/24 22:53 Urine Color (Yellow) [place] Urine Clarity (Clear) Sl Cloudy Urine pH (5-8) Ur Specific [place] (1.005-1.025) 1.020 Urine Protein (Neg-Trace) mg/dL Urine Ketones (Negative) mg/dL Urine Blood (Negative) Urine Nitrite (Negative) Urine Bilirubin (Negative) Urine Urobilinogen (Up to 0.2) mg/dL Ur Leukocyte Esterase (Negative) Urine RBC (0-2) HPF 20-50 H Urine WBC (0-5) HPF 20-50 H Ur Epithelial Cells (Negative) HPF Many Urine Crystals (Negative) HPF Negative Urine Bacteria (Negative) HPF Few Urine Mucus (Negative) Negative Urine Other (Negative) Rare Transitional Ur Culture Indicated? No/Sq. Contamination Urine Glucose (Negative) mg/dL POC- Test(urine) Negative Medical Decision Making 29-year-old female presents to the ER with a chief complaint of 3 days of dysuria. She has been taking Pyridium at home with some relief. She is 6 months and is breast-feeding. Denies any nausea vomiting fever chills or back pain. Her urinalysis is slightly skewed by the Pyridium however does show 20-50 WBCs and 20-50 RBCs. It is squamous contaminated. However due to her symptoms we will go ahead and treat her. Patient given cephalexin 5 mg twice daily x 7 days. Instructed to follow-up with PCP verbalized understanding. This text was generated using [employer] dictation system, please disregard any oddities of phrase or misspellings. Lab Data Lab results reviewed: Yes I reviewed the patient's lab results. Labs: Laboratory Tests Range/Units 07/29/24 22:53 Urine Color (Yellow) [place] Urine Clarity (Clear) Sl Cloudy Urine pH (5-8) Ur Specific [place] (1.005-1.025) 1.020 Urine Protein (Neg-Trace) mg/dL Urine Ketones (Negative) mg/dL Urine Blood (Negative) Urine Nitrite (Negative) Urine Bilirubin (Negative) Urine Urobilinogen (Up to 0.2) mg/dL Ur Leukocyte Esterase (Negative) Urine RBC (0-2) HPF 20-50 H Urine WBC (0-5) HPF 20-50 H Ur Epithelial Cells (Negative) HPF Many Urine Crystals (Negative) HPF Negative Urine Bacteria (Negative) HPF Few Urine Mucus (Negative) Negative Urine Other (Negative) Rare Transitional Ur Culture Indicated? No/Sq. Contamination Urine Glucose (Negative) mg/dL Quality:SDOH Health Related Social Needs: No Data to Display PFSH All Active Problems (Updated 07/29/24 @ 23:15 by Joselin Santacruz NP) UTI (urinary tract infection) (Acute) Acute mastitis of left breast (Acute) Contraceptive device, intrauterine (Acute) Term of male (Acute) Medical History Urinary tract infection (09/29/13) Family history of congenital anomaly (09/29/13) Postcoital and contact bleeding (04/19/18) Family history of cervical cancer (04/19/18) Personal history of urinary tract infection Posttraumatic stress disorder Surgical History History of mandibular surgery H/O right knee surgery Family History Mother Carcinoma in situ of uterine cervix Brother Family history of congenital anomaly Cerebellum Hypoplasia Other Cardiovascular disease Chronic hypotension Diabetes Social History Smoking/Tobacco Use Status: Never Smoking risk assessment performed?: Yes Alcohol Intake: former Drug use: Never Substance use type: does not use Household members: significant other and children Housing: house Number of Children: 2 Communication Needs: None Pets and animals: Yes Pets and animals: cat(s) and dog(s) Sexually active: Yes What is your relationship status?: living with partner How often do you talk on the phone with friends or family?: once per week How often do you get together with friends or relatives?: once per week Panel score (0-1 are the most socially isolated patients): 1 What type of physical activity do you participate in: additional Details: horse back riding Karina/Cheondoism: Scientology Seatbelt use: always Helmet use: No Drive intox or ride w/intox fence post driver: No Do you feel safe at home: Yes Do you feel safe in your relationship?: Yes Female Reproductive History Menstrual control method: progestin IUCD History History 4 Para 2 Hx # Term Pregnancies 2 Multiple births 0 Hx # Pregnancies 0 Ectopic pregnancies 0 AB induced 0 Hx Number of Living Children 2 AB spontaneous 1 Past Pregnancies Del. Date GA/Weeks # Preg Succ Route Wgt Sex Labor Lgth Anesth esia Location [facility] Compl 06/30/09 6 No No 05/22/14 42 No Yes vaginal 4241.089 g Male 24 Anea 02/24/16 41 No Yes vaginal 3912.234 g Male 6 Anea 01/25/24 41 No Yes vaginal 4224.079 g Male 6 Bibiana montero CN Delivery Date: 06/30/09 Last Updated by: DORIAN Saunders no complications, reports as consensual Delivery Date: 05/22/14 Last Updated by: Misty Rojas CNM [facility] Anea delivered, [place] Delivery Date: 02/24/16 Last Updated by: DORIAN Saunders for delivery, [facility]
[2024-07-29] MEDS: Cephalexin 500 MG CAP PO (23:28)
[2024-07-29] MEDS: Cephalexin 500 MG CAP, 2 CAPS/BTL PO (23:28)
== END 2024-07-29 23:31 | disposition home or self-care (01) ==
LOC: ER 23:20 → RED 23:31
PROVIDERS: Emergency Provider Registered Nurse Emergency; PCP Advanced Practice Midwife
DX: N39.0 Urinary tract infection, site not specified (principal)
CPT/HCPCS: 99283; 81003; 81015

== ENCOUNTER 2024-08-09 18:21 | Outpatient (REF) | payer MEDICAID, SELFPAY | END 2024-08-09 18:22 | disposition home or self-care (01) | LOC: LBN 18:21 | PROVIDERS: PCP Advanced Practice Midwife; Visit Provider Nurse Practitioner Family | DX: N30.01 Acute cystitis with hematuria (principal) | CPT/HCPCS: 87077; 87086; 87186 ==

== ENCOUNTER 2024-08-20 16:43 | Outpatient (REF) | payer MEDICAID, SELFPAY | END 2024-08-20 16:44 | disposition home or self-care (01) | LOC: LBN 16:43 | PROVIDERS: PCP Advanced Practice Midwife; Visit Provider Nurse Practitioner Family | DX: N30.01 Acute cystitis with hematuria (principal) | CPT/HCPCS: 87077; 87086; 87186 ==

== ENCOUNTER 2024-09-07 15:50 | Outpatient (REF) | payer MEDICAID, SELFPAY ==
[2024-09-07 21:54] LABS: Bacteria Negative HPF (Negative); C & S Indicated? C&S Done As Ordered; Crystals Negative HPF (Negative); Epithelial Cells Rare HPF (Negative); Mucus Negative (Negative); RBC 0-2 HPF (0-2)
== END 2024-09-07 15:51 | disposition home or self-care (01) ==
LOC: LBN 15:50
PROVIDERS: PCP Advanced Practice Midwife; Visit Provider Physician Assistant Medical
DX: R30.0 Dysuria (principal); R82.89 Other abnormal findings on cytological and histological examination of urine
CPT/HCPCS: 81015; 87086

== ENCOUNTER 2024-09-26 21:44 | Outpatient (REF) | payer MEDICAID, SELFPAY | END 2024-09-26 21:45 | disposition home or self-care (01) | LOC: LBN 21:44 | PROVIDERS: PCP Advanced Practice Midwife; Visit Provider Nurse Practitioner Family | DX: N39.0 Urinary tract infection, site not specified (principal); R82.89 Other abnormal findings on cytological and histological examination of urine | CPT/HCPCS: 87086; 87480; 87510; 87660 ==

== ENCOUNTER 2024-09-27 09:28 | Outpatient (CLI) | payer MEDICAID, SELFPAY ==
--- NOTE | 2024-09-27 | DI.US_ITS ---
Exam(s) US RENAL EXAM: US RENAL CLINICAL HISTORY: RECURRENT UTI N39.0. TECHNIQUE: Flowers scale, color and spectral Doppler were used. COMPARISON: US PELVIS TRANSVAG from 05/04/2018 FINDINGS: Right kidney: 10.2cm Echogenicity: Normal Hydronephrosis: No Cyst or mass: No Nephrolithiasis: No Left kidney: 10.6 cm Echogenicity: Normal Hydronephrosis: No Cyst or mass: No Nephrolithiasis: No Bladder:Not well distended. Not well evaluated. Prevoid vol:41 cc Postvoid vol:0 cc IMPRESSION: Negative renal ultrasound. Bladder nondistended and not well evaluated. DATA REPOSITORY:
== END 2024-09-27 09:48 ==
PROVIDERS: PCP Advanced Practice Midwife; Visit Provider Nurse Practitioner Family
DX: N39.0 Urinary tract infection, site not specified (principal)
CPT/HCPCS: 76770